=== PATIENT | male | born 1960 | race Caucasian/White ===

== ENCOUNTER 2017-03-21 02:10 | Inpatient (IN) | payer MEDICAID, OTHER ==
[~2017-03-21] VITALS: Ht 175.3 cm; Wt 141.5 kg
--- NOTE | 2017-03-21 02:12 | NUR ---
MD REINOSO AT BED SIDE FOR EVAL
--- NOTE | 2017-03-21 02:15 | NUR ---
BIBSELF FROM HOME C/O LEFT SIDED CP WITH SOB X 7HR EXECUTIVE PRODUCER PROMOS. WAS SEEN AT A URGENT CARE 03/14/17 DX AFIB/ CHF. PATIENT IS AAOX4, AMBULATORY, NAD NOTED. PLACED ON CARDIAC AND VS MONITOR. NONDIAPHORETIC. NOTED AFIB ON THE MONITOR. GOWNED.
--- NOTE | 2017-03-21 02:20 | NUR ---
PATIENT SAID HE WANTS "TO USE THE BATHROOM FIRST BEFORE ANYTHING ELSE."
[2017-03-21] MEDS ORDERED: NITROGLYCERIN PACKET 1 GM PACKET ONE (02:28)
[2017-03-21] MEDS ORDERED: ASPIRIN 81 MG TAB.CHEW ONE (02:28)
[2017-03-21] MEDS ORDERED: NITROGLYCERIN 0.4 MG/TAB BOTTLE ONE (02:28)
[2017-03-21] MEDS ORDERED: NITROGLYCERIN PACKET 1 GM PACKET TD ONE (02:30)
[2017-03-21] MEDS ORDERED: ASPIRIN 81 MG TAB.CHEW PO ONE (02:30)
[2017-03-21] MEDS ORDERED: AMIODARONE 150 MG/3 ML VIAL IV ONE ×4 (02:30→02:56)
[2017-03-21] MEDS ORDERED: NITROGLYCERIN 0.4 MG/TAB BOTTLE SL ONE (02:30)
--- NOTE | 2017-03-21 02:45 | NUR ---
PATIENT BACK TO BED. CXR AT BEDSIDE.
--- NOTE | 2017-03-21 02:50 | NUR ---
STARTED A SALINE LOCK ON THE RIGHT HAND G18, BLOOD DRAWN AND SENT TO LAB.
[2017-03-21 02:57] LABS: BASOPHILS # (AUTO) 0.1 /CMM (0.0-0.2); BASOPHILS % (AUTO) 1.1 % (0.0-2.0); EOSINOPHILS # (AUTO) 0.2 /CMM (0.0-0.7); EOSINOPHILS % (AUTO) 1.7 % (0.0-6.0); HEMATOCRIT 45 % (39-51); HEMOGLOBIN 14.9 g/dL (13.5-17.5); LYMPHOCYTES % (AUTO) 18.3 % (20.0-44.0); MEAN CORPUSCULAR HEMOGLOBIN 29 PG (26.0-33.0); MEAN CORPUSCULAR HGB CONC 33 g/dl (31.0-36.0); MEAN CORPUSCULAR VOLUME 89 fL (80-96); MONOCYTES # (AUTO) 1.1 /CMM (0.1-1.30); NEUTROPHILS # (AUTO) 7.3 /CMM (1.8-8.9); NEUTROPHILS % (AUTO) 68.9 % (43.0-81.0); PLATELET COUNT (AUTO) 283 /CMM (150-450); RDW COEFFICIENT OF VARIATION 15.2 (11.5-15.0); RED BLOOD CELL COUNT(AUTO) 5.12 MIL/uL (4.5-6.0); WHITE BLOOD COUNT (AUTO) 10.6 K/uL (4.3-11.0)
--- NOTE | 2017-03-21 02:57 | NUR ---
POST 5MINS OF NITRO SL X1, PATIENT REPORTS RELIEF FROM ANY CHEST PAIN OR PRESSURE. ONGOING CARDIAC AND VS MONITORING.
[2017-03-21 03:08] LABS: CALCIUM, SERUM 8.6 mg/dL (8.5-10.1); CARBON DIOXIDE 24 mmol/L (21-32); CHLORIDE 106 mmol/L (98-107); CREATININE 1.3 mg/dL (0.6-1.3); GLUCOSE 99 mg/dL (74-106); POTASSIUM 4.5 mmol/L (3.5-5.1); SODIUM SERUM 141 mmol/L (136-145); UREA NITROGEN, BLOOD 24 mg/dL (7-18)
--- NOTE | 2017-03-21 03:15 | NUR ---
STARTED AMIO DRIP AT THIS TIME FOR AFIB 115. ONGOING CARDIAC AND VS MONITORING.
[2017-03-21 03:16] LABS: TROPONIN I < 0.017 ng/mL (0.00-0.056)
[2017-03-21 03:17] LABS: D-DIMER 0.61 mg/L(FEU (0.17-0.50); INR 0.98 (0.87-1.13); PROTHROMBIN TIME 10.2 SECS (9.5-12.7)
[2017-03-21 03:21] LABS: ALANINE AMINOTRANSFERASE 33 U/L (12-78); ALKALINE PHOSPHATASE 101 U/L (46-116); ASPARTATE AMINOTRANSFERASE 24 U/L (15-37); B-TYPE NATRIURETIC PEPTIDE 1432 PG/ML (0-125); BILIRUBIN,DIRECT 0.1 mg/dL (0.0-0.2); BILIRUBIN,TOTAL 0.5 mg/dL (0.2-1.0); TOTAL PROTEIN, SERUM 8.5 g/dL (6.4-8.2)
[2017-03-21] MEDS ORDERED: IOHEXOL-350 100 ML VIAL IV ONE (03:57)
[2017-03-21] MEDS ORDERED: IV NS 0.9% 250 ML IV ONE (03:57)
[2017-03-21] MEDS ORDERED: IV NS 0.9% 1,000 ML BAG IV ONE (04:00)
--- NOTE | 2017-03-21 04:06 | NUR ---
PATIENT TO CT.
[2017-03-21] MEDS ORDERED: FURO-144 PO (05:49)
[2017-03-21] MEDS ORDERED: ASPI81TA2 PO (05:49)
--- NOTE | 2017-03-21 05:53 | NUR ---
Report given to CEDRICK Spann for admission and iggy.
[2017-03-21] MEDS ORDERED: HYDROCODONE/APAP 5/325MG 1 EACH TABLET PO PRN (06:00)
[2017-03-21] MEDS ORDERED: ONDANSETRON HCL/PF 4 MG/2 ML VIAL IVP PRN (06:00)
[2017-03-21] MEDS ORDERED: Z GUARD REMEDY 2 OZ OINT TP PRN (06:00)
[2017-03-21] MEDS ORDERED: ACETAMINOPHEN 325 MG TABLET PO PRN (06:00)
[2017-03-21] MEDS ORDERED: MAGNESIUM HYDROXIDE 30 ML UDC PO PRN (06:00)
[2017-03-21] MEDS ORDERED: MAG HYDROX/AL HYDROX/SIMETH 30 ML UDC PO PRN (06:00)
--- NOTE | 2017-03-21 06:18 | NUR ---
Transferred patient to [facility] floor room 117-1 via als protocol, no incident.
--- NOTE | 2017-03-21 06:25 | NUR ---
LILLIAN RN NOTE PT ARRIVED FROM ER ON GURNEY, A/O X 4, NO SOB, NO DISTRESS OR DISCOMFORT NOTED. PT IS DX WITH CHEST PAIN BY MINE MANAGER SHANE. PT FALL ASLEEP. VSS. WILL ENDORSE TO DAY SHIFT NURSE TO COMPLETE WITH ADMISSION. ON TELE A FIB HR 90. AMIODARONE DRIP AT 1 MG/MINUTE INFUSING WELL. NO S/S OF INFILTRATION NOTED.
[2017-03-21 06:36] VITALS: BP 113/82
--- NOTE | 2017-03-21 06:48 | NUR ---
RN NOTES CLARIFIED ADMISSION ORDERS REGARDING STATUS. PATIENT INITIALLY ADMITTED UNDER TELEMETRY STATUS, BUT PATIENT IS CURRENTLY RECEIVING AMIODARONE DRIP. SHANE CHAUDHARY NP MADE AWARE WITH ORDER TO CHANGE STATUS TO TELEMETRY FOR AMIODARONE DRIP.
--- NOTE | 2017-03-21 07:21 | NUR ---
RN NOTES ON ADMISSION, NOTED WITH $653 [place] ALONG WITH 4 CREDIT CARDS. PATIENT EDUCATED REGARDING SAFETY DEPOSIT BOX TO STORE VALUABLES, WITH VERBALIZATION OF UNDERSTANDING, BUT INSISTS TO KEEP ALL VALUABLES AND PERSONAL BELONGINGS AT BEDSIDE.
--- NOTE | 2017-03-21 07:30 | NUR ---
RN NOTES SEEN PATIENT IN BED SLEEPING W/ BREATHING NORMAL EVEN AND UNLABORED. NO SOB NOTED. ON O2 LPM VIA N/C , SATURATING WELL. NO ACUTE DISTRESS NOTED. TELE MONITOR REVEALS CONTROLLED AFIB HR 70. IV RH 18G PATENT AND INTACT W/ NO INFILTRATION NOTED. BOWEL SOUND PRESENT. PULSES PRESENT, SAFETY MEASURES OBSERVED. NEEDS ATTENDED. CALL LIGHT W/ REACH. WILL CONTINUE TO MONITOR.
[2017-03-21 08:00] VITALS: BP 108/78
--- NOTE | 2017-03-21 08:05 | NUR ---
CLARIFIED WITH ANNMARIE CHU CARDIAC MEDS PT. STILL ON AFIB,REVIEWED LABS H/P WITH NEW ORDERS LEFT AND CARRIED OUT.
[2017-03-21] MEDS ORDERED: ASPIRIN 81 MG TAB.CHEW PO SCH (09:00)
[2017-03-21] MEDS ORDERED: ENOXAPARIN SODIUM 60 MG/0.6 ML DISP.SYRIN SQ SCH (09:00)
[2017-03-21] MEDS: DILTIAZEM HCL CD 240 MG PO SCH (09:03)
[2017-03-21 12:00] VITALS: BP 129/86
--- NOTE | 2017-03-21 12:55 | NUR ---
WOUND CARE CONSULT: PT PRESENTS WITH ULCER TO LEFT LOWER LEG, PRESENT ON ADMISSION. PT REFUSED FULL SKIN ASSESSMENT OF BUTTOCKS, BACK AREAS. PT STATES IS CONTINENT AND AMBULATORY. WILL SEE PRN. RECOMMEND SURGICAL CONSULT. MD IN AGREEMENT WITH PLAN OF CARE. Addendum: 03/21/17 at 1256 by BASHIR MONROY WNDNU Amended: Links added.
[2017-03-21] MEDS ORDERED: HYDROGEL DRESSING 90 GM TUBE TP PRN (13:00)
[2017-03-21] MEDS: HYDROGEL DRESSING 90 GM TUBE TP SCH (15:16)
[2017-03-21 16:00] VITALS: BP_SYST 144; BP_SYST 146; BP_DIAS 55; BP_DIAS 97
[2017-03-21] MEDS ORDERED: FUROSEMIDE 40 MG/4 ML VIAL IV ONE (17:00)
[2017-03-21] MEDS: METOPROLOL TARTRATE 25 MG TABLET PO SCH (17:18)
--- NOTE | 2017-03-21 19:04 | NUR ---
RN NOTES: PATIENT ENDORSED TO NEXT SHIFT IN STABLE CONDITION WITH BREATHING NORMAL EVEN AND UNLABORED. NO SOB NOTED. NO ACUTE DISTRESS NOTED. KEPT CLEAN DRY AND COMFORTABLE. ALL NEEDS ATTENDED. SAFETY MEASURES OBSERVED. CALL LIGHT WITH IN REACH. WILL CONTINUE TO MONITOR.
--- NOTE | 2017-03-21 19:30 | NUR ---
MOLD INSERT CHANGER INITIAL NOTE PT RECEIVED RESTING IN BED. A/O X4 AND ABLE TO MAKE NEEDS KNOWN. ON 2L OF O2 VIA NC AND SATURATING 95%. NOTED WITH EPISODES OF SOB. ENCOURAGED TO DO BREATHING EXERCISES AND RELAX IN BED. PT TEACHING TO USE URINAL TO URINATE AND PT REFUSED STATING ' I WANT TO USE THE BATHROOM'. EXPLAINED TO PT RISKS AND BENEFITS AND ABOUT REASONS WHY URINAL SHOULD BE USED FOR STRICT I & O DUE TO LASIX USE. PT STILL REFUSED. TELE- AFIB CONTROLLED 82. ALL SAFETY MEASURES IN PLACE. CALL LIGHT WITHIN REACH. WILL CONTINUE TO MONITOR.
[2017-03-21 20:00] VITALS: BP 111/73
[2017-03-22] VITALS: BP 119/88
[2017-03-22] MEDS: METOPROLOL TARTRATE 25 MG TABLET PO SCH ×2 (00:37→05:15)
[2017-03-22 04:00] VITALS: BP 118/65
[2017-03-22 07:12] LABS: CALCIUM, SERUM 8.5 mg/dL (8.5-10.1); CREATININE 1.2 mg/dL (0.6-1.3); PHOSPHORUS 3.5 mg/dL (2.5-4.9); POTASSIUM 4.9 mmol/L (3.5-5.1)
--- NOTE | 2017-03-22 07:14 | NUR ---
SCHOOL AGE LEAD TEACHER CLOSING NOTE PT REMAINED STABLE DURING SHIFT. NO ACUTE DISTRESS NOTED. OXYGEN WELL TOLERATED. ALL NEEDS ATTENDED TO PROMPTLY. TELE- AFIB CONTROLLED 80'S. NEW IV INSERTED AND PROCESS WELL TOLERATED. NO C/O DISCOMFORT NOTED. ALL SAFETY MEASURES IN PLACE. NPO EXCEPT MEDS MAINTAINED. CALL LIGHT WITHIN REACH. WILL ENDORSE TO NEXT SHIFT FOR CONTINUITY OF CARE.
[2017-03-22 07:19] LABS: BASOPHILS # (AUTO) 0.1 /CMM (0.0-0.2); BASOPHILS % (AUTO) 0.7 % (0.0-2.0); EOSINOPHILS # (AUTO) 0.2 /CMM (0.0-0.7); EOSINOPHILS % (AUTO) 2.5 % (0.0-6.0); HEMATOCRIT 46 % (39-51); HEMOGLOBIN 14.6 g/dL (13.5-17.5); LYMPHOCYTES # (AUTO) 2.2 /CMM (0.8-4.8); LYMPHOCYTES % (AUTO) 23.1 % (20.0-44.0); MEAN CORPUSCULAR HEMOGLOBIN 29 PG (26.0-33.0); MEAN CORPUSCULAR HGB CONC 32 g/dl (31.0-36.0); MEAN CORPUSCULAR VOLUME 89 fL (80-96); MONOCYTES # (AUTO) 0.9 /CMM (0.1-1.30); MONOCYTES % (AUTO) 9.6 % (2.0-12.0); NEUTROPHILS % (AUTO) 64.1 % (43.0-81.0); PLATELET COUNT (AUTO) 277 /CMM (150-450); RDW COEFFICIENT OF VARIATION 15.3 (11.5-15.0); WHITE BLOOD COUNT (AUTO) 9.3 K/uL (4.3-11.0)
--- NOTE | 2017-03-22 07:30 | NUR ---
RN NOTES SEEN PATIENT IN BED ALERT, AWAKE , ORIENTED X3 WITH BREATHING NORMAL EVEN AND UNLABORED. NO SOB NOTED. ON 2L O2 VIA N/C , SATURATING WELL. NO ACUTE DISTRESS NOTED. TELE MONITOR REVEALS CONTROLLED AFIB HR 80. IV IS PATENT AND INTACT. NO INFILTRATION NOTED. BOWEL SOUND PRESENT. PULSES PRESENT, SAFETY MEASURES OBSERVED. NEEDS ATTENDED. CALL LIGHT W/ REACH. WILL CONTINUE TO MONITOR.
[2017-03-22 08:00] VITALS: BP_SYST 104; BP_SYST 111; BP_DIAS 66; BP_DIAS 73
[2017-03-22] MEDS ORDERED: ENOXAPARIN SODIUM 40 MG/0.4 ML DISP.SYRIN SQ SCH (09:00)
[2017-03-22] MEDS ORDERED: ASPIRIN 81 MG TAB.CHEW PO SCH (09:00)
[2017-03-22] MEDS ORDERED: ASPIRIN 325 MG TABLET PO SCH (10:01)
[2017-03-22 12:00] VITALS: BP 119/83
[2017-03-22] MEDS ORDERED: REGADENOSON 0.4 MG/5 ML DISP.SYRIN IVP ONE (12:30)
[2017-03-22] MEDS: DILTIAZEM HCL CD 240 MG PO SCH (14:15)
[2017-03-22] MEDS ORDERED: MORPHINE SULFATE INJ 4 MG/ML DISP.SYRIN IV PRN (14:30)
[2017-03-22] MEDS: HYDROGEL DRESSING 90 GM TUBE TP SCH (14:52)
[2017-03-22 16:00] VITALS: BP 127/77
[2017-03-22] MEDS ORDERED: METOPROLOL TARTRATE 25 MG TABLET PO SCH (17:00)
--- NOTE | 2017-03-22 19:00 | NUR ---
RN NOTES PATIENT DISCHARGED IN STABLE CONDITION WITH BREATHING NORMAL, EVEN AND UNLABORED. NO SOB NOTED. ON ROOM AIR, SATURATING WELL. NO ACUTE DISTRESS NOTED. DENIES ANY PAIN OR DISCOMFORT. DISCHARGE INSTRUCTION GIVEN WITH FEEDBACK. UNDERSTOOD WELL. PATIENT REFUSED FOR WOUND PICTURE. R/B EXPLAINED. BUT STILL REFUSED STRONGLY. PATIENT LEFT IN STABLE CONDITION.
[2017-03-22 20:00] VITALS: BP 108/46
[2017-03-23] VITALS: BP 90/52
== END 2017-03-23 | disposition home or self-care (01) | DRG 201 ==
LOC: ER 02:13 → TELE-TD 06:18 → TELE1 14:20
PROVIDERS: ADMIT Internal Medicine; ATTEND Internal Medicine
DX: I48.91 Unspecified atrial fibrillation (principal); Z68.42 Body mass index [BMI] 45.0-49.9, adult; F15.10 Other stimulant abuse, uncomplicated; E66.9 Obesity, unspecified
CPT/HCPCS: 36415; 71010-TC; 80048-TC; 80061-TC; 80076-TC; 83735-TC; 83880; 84100-TC; 84443-TC; 84484-TC; 85025-TC; 85378-TC; 85730-TC; 87081-TC; 93307-TC; A4606; A6248; A9502; J0282; J1650; J1940; J2270; J2785; J7030; J7050; J7060; Q9967; Z7610

== ENCOUNTER 2019-06-10 19:11 | Emergency (ER) | payer MEDICAID ==
[~2019-06-10] VITALS: Ht 175.3 cm; Wt 138.3 kg
[~2019-06-10 19:11] MED LIST: ASPI-1169 PO; FURO-144 PO
--- NOTE | 2019-06-10 19:21 | NUR ---
CALLED PT IN WAITING ROOM. NO RESPONSE.
--- NOTE | 2019-06-10 19:48 | NUR ---
CALLED PT IN WAITING ROOM. NO RESPONSE.
--- NOTE | 2019-06-10 20:27 | NUR ---
BIBS FOR EVALUATION OF BLE REDNESS, SWELLING AND PUS DISCHARGES X 3 DAYS.
[2019-06-10] MEDS ORDERED: VANCOMYCIN 1 GM VIAL ONE (20:53)
[2019-06-10] MEDS ORDERED: VANCOMYCIN 1 GM in IV D5W 250 ML IV ONE (21:00)
[2019-06-10 21:05] LABS: BASOPHILS # (AUTO) 0.1 /CMM (0.0-0.2); BASOPHILS % (AUTO) 0.5 % (0.0-2.0); EOSINOPHILS % (AUTO) 2.2 % (0.0-6.0); HEMATOCRIT 40 % (39-51); HEMOGLOBIN 13.4 g/dL (13.5-17.5); LYMPHOCYTES # (AUTO) 1.4 /CMM (0.8-4.8); LYMPHOCYTES % (AUTO) 14.3 % (20.0-44.0); MEAN CORPUSCULAR HGB CONC 33 g/dl (31.0-36.0); MEAN CORPUSCULAR VOLUME 92 fL (80-96); PLATELET COUNT (AUTO) 306 /CMM (150-450); RED BLOOD CELL COUNT(AUTO) 4.37 MIL/uL (4.5-6.0); WHITE BLOOD COUNT (AUTO) 9.7 K/uL (4.3-11.0)
[2019-06-10 21:12] LABS: CALCIUM, SERUM 8.9 mg/dL (8.5-10.1); CARBON DIOXIDE 34 mmol/L (21-32); CHLORIDE 100 mmol/L (98-107); CREATININE 1.8 mg/dL (0.6-1.3); GLUCOSE 149 mg/dL (74-106); POTASSIUM 3.8 mmol/L (3.5-5.1); SODIUM SERUM 142 mmol/L (136-145); UREA NITROGEN, BLOOD 27 mg/dL (7-18)
[2019-06-10 21:18] LABS: ALANINE AMINOTRANSFERASE 20 U/L (12-78); ALBUMIN 3.1 g/dL (3.4-5.0); ALKALINE PHOSPHATASE 94 U/L (46-116); ASPARTATE AMINOTRANSFERASE 14 U/L (15-37); BILIRUBIN,DIRECT 0.1 mg/dL (0.0-0.2); BILIRUBIN,TOTAL 0.4 mg/dL (0.2-1.0); TOTAL PROTEIN, SERUM 7.8 g/dL (6.4-8.2)
--- NOTE | 2019-06-10 21:55 | NUR ---
PT SIGNED AMA FORM.
--- NOTE | 2019-06-10 22:22 | NUR ---
Pt completed the ATB dose w/ no complications. IV removed. Catheter intact and site benign. Pressure and 4x4 applied to site. No bleeding noted. Patient discharged to home in stable condition. Rx and Written and verbal after care instructions given. Patient verbalizes understanding of instruction.
[2019-06-10 22:30] VITALS: BP 126/90
[2019-06-20] MEDS ORDERED: CEPH500C2 PO (14:08)
[2019-06-20] MEDS ORDERED: FURO80TA3 PO (14:08)
[2019-06-20] MEDS ORDERED: POTA10CA43 PO (14:08)
[2019-06-20] MEDS ORDERED: METO50TA16 PO (14:08)
[2019-06-20] MEDS ORDERED: ATOR40TA PO (14:08)
[2019-06-20] MEDS ORDERED: APIX5TAB PO (14:08)
[2019-06-20] MEDS ORDERED: SMZ/TMP PO (14:08)
[2019-06-20] MEDS ORDERED: DOXE50CA4 PO (14:09)
[2019-06-20] MEDS ORDERED: LORC10TA PO (14:09)
== END 2019-06-10 22:31 | disposition left against medical advice (07) ==
LOC: ER 19:15
DX: L03.116 Cellulitis of left lower limb (principal); L03.115 Cellulitis of right lower limb; I48.91 Unspecified atrial fibrillation; E66.01 Morbid (severe) obesity due to excess calories; I11.0 Hypertensive heart disease with heart failure; I50.9 Heart failure, unspecified; Z60.2 Problems related to living alone; Z79.82 Long term (current) use of aspirin; Z79.899 Other long term (current) drug therapy; Z68.42 Body mass index [BMI] 45.0-49.9, adult
CPT/HCPCS: 36415; 71045; 80048; 80076; 83605; 83880; 84484; 85025; 85730; 87040 ×2; 87081; 93005; 93970; 96365; 99284; J3370

== ENCOUNTER → 2019-06-20 | Emergency (ER) | payer MEDICAID ==
[~2019-06-20] VITALS: Ht 175.3 cm; Wt 140.6 kg
[~2019-06-20] MED LIST changes: +APIX5TAB PO; +ATOR40TA PO; +CEPH500C2 PO; +DOXE50CA4 PO; +FURO80TA3 PO; +LORC10TA PO; +METO50TA16 PO; +MORPHINE SULFATE INJ 2 MG/ML DISP.SYRIN IV ONE; +MORPHINE SULFATE INJ 4 MG/ML DISP.SYRIN ONE; +ONDANSETRON HCL/PF 4 MG/2 ML VIAL IVP ONE; +ONDANSETRON HCL/PF 4 MG/2 ML VIAL ONE; +POTA10CA43 PO; +SMZ/TMP PO; +VANCOMYCIN 1 GM in IV D5W 250 ML IV ONE
--- NOTE | 2019-06-20 12:29 | NUR ---
CAME BACK FOR POSSIBLE ADMISSION FOR BILATERAL LEG CELLULITIS. PT AAOX4, VSS, RR EVEN & UNLABORED. DENIES CP, SOB, DIZZINESS, N/V, WEAKNESS @ THIS TIME. PT SEEN & EVAL'D BY NALDO LAL. WILL CONT TO MONITOR.
[2019-06-20 12:38] LABS: BASOPHILS # (AUTO) 0.1 /CMM (0.0-0.2); EOSINOPHILS % (AUTO) 0.9 % (0.0-6.0); HEMATOCRIT 38 % (39-51); HEMOGLOBIN 12.9 g/dL (13.5-17.5); LYMPHOCYTES # (AUTO) 1.5 /CMM (0.8-4.8); LYMPHOCYTES % (AUTO) 13.9 % (20.0-44.0); MEAN CORPUSCULAR HGB CONC 34 g/dl (31.0-36.0); MEAN CORPUSCULAR VOLUME 90 fL (80-96); NEUTROPHILS # (AUTO) 8.3 /CMM (1.8-8.9); NEUTROPHILS % (AUTO) 75.2 % (43.0-81.0); PLATELET COUNT (AUTO) 390 /CMM (150-450); RED BLOOD CELL COUNT(AUTO) 4.26 MIL/uL (4.5-6.0)
[2019-06-20 12:50] LABS: CALCIUM, SERUM 8.9 mg/dL (8.5-10.1); CREATININE 1.6 mg/dL (0.6-1.3); POTASSIUM 4.4 mmol/L (3.5-5.1)
[2019-06-20 13:05] LABS: ALBUMIN 2.9 g/dL (3.4-5.0); BILIRUBIN,DIRECT 0.1 mg/dL (0.0-0.2); BILIRUBIN,TOTAL 0.4 mg/dL (0.2-1.0)
--- NOTE | 2019-06-20 15:02 | NUR ---
PER CM PT WILL GO TO [facility] PENDING BED ASSIGNMENT
== END | disposition left against medical advice (07) ==
LOC: ER 11:12
DX: L03.116 Cellulitis of left lower limb (principal); L03.115 Cellulitis of right lower limb; I11.0 Hypertensive heart disease with heart failure; I50.9 Heart failure, unspecified; I48.91 Unspecified atrial fibrillation; E66.9 Obesity, unspecified; Z79.82 Long term (current) use of aspirin; Z79.899 Other long term (current) drug therapy; Z68.42 Body mass index [BMI] 45.0-49.9, adult
CPT/HCPCS: 36415; 71045; 80048; 80076; 83605; 83880; 84145; 85025; 85730; 87081; 93005; 96365; 99284; J2405; J3370; J7060; J2270

== ENCOUNTER 2019-11-17 02:33 | Inpatient (IN) | payer MEDICAID ==
[~2019-11-17] VITALS: Ht 175.3 cm; Wt 149.2 kg
[~2019-11-17 02:33] MED LIST changes: -ASPI-1169 PO; -FURO-144 PO; -MORPHINE SULFATE INJ 2 MG/ML DISP.SYRIN IV ONE; -MORPHINE SULFATE INJ 4 MG/ML DISP.SYRIN ONE; -ONDANSETRON HCL/PF 4 MG/2 ML VIAL IVP ONE; -ONDANSETRON HCL/PF 4 MG/2 ML VIAL ONE; -VANCOMYCIN 1 GM in IV D5W 250 ML IV ONE
--- NOTE | 2019-11-17 02:50 | NUR ---
bib friends c/o Syncopal episodes for past week, fell today +loc, c/o lt foot pain. to er bed 2 vitals stable, blood drawn and sent to lab
--- NOTE | 2019-11-17 03:03 | NUR ---
taken to radiology for xray
[2019-11-17 03:15] LABS: BASOPHILS % (AUTO) 0.3 % (0.0-2.0); EOSINOPHILS % (AUTO) 0.5 % (0.0-6.0); HEMATOCRIT 41 % (39-51); HEMOGLOBIN 13.9 g/dL (13.5-17.5); LYMPHOCYTES # (AUTO) 1.4 /CMM (0.8-4.8); MEAN CORPUSCULAR HGB CONC 34 g/dl (31.0-36.0); MEAN CORPUSCULAR VOLUME 90 fL (80-96); MONOCYTES # (AUTO) 1.7 /CMM (0.1-1.30); MONOCYTES % (AUTO) 10.8 % (2.0-12.0); NEUTROPHILS # (AUTO) 12.4 /CMM (1.8-8.9); NEUTROPHILS % (AUTO) 79.4 % (43.0-81.0); PLATELET COUNT (AUTO) 296 /CMM (150-450); RED BLOOD CELL COUNT(AUTO) 4.55 MIL/uL (4.5-6.0); WHITE BLOOD COUNT (AUTO) 15.7 K/uL (4.3-11.0)
[2019-11-17 03:27] LABS: ALANINE AMINOTRANSFERASE 38 U/L (12-78); ALBUMIN 3.6 g/dL (3.4-5.0); ALKALINE PHOSPHATASE 112 U/L (46-116); ASPARTATE AMINOTRANSFERASE 36 U/L (15-37); BILIRUBIN,DIRECT 0.3 mg/dL (0.0-0.2); CALCIUM, SERUM 9.2 mg/dL (8.5-10.1); CREATININE 3.6 mg/dL (0.6-1.3); GLUCOSE 121 mg/dL (74-106); SODIUM SERUM 128 mmol/L (136-145); TOTAL PROTEIN, SERUM 8.5 g/dL (6.4-8.2)
[2019-11-17 03:32] LABS: B-TYPE NATRIURETIC PEPTIDE 897 PG/ML (0-125)
--- NOTE | 2019-11-17 03:32 | NUR ---
pt back from radiology
[2019-11-17 03:39] LABS: ALCOHOL, BLOOD < 3 mg/dL (0-0)
[2019-11-17 03:45] LABS: CHLORIDE 80 mmol/L (98-107)
[2019-11-17 03:47] LABS: POTASSIUM 2.4 mmol/L (3.5-5.1)
[2019-11-17 03:48] LABS: CARBON DIOXIDE 52 mmol/L (21-32); UREA NITROGEN, BLOOD 98 mg/dL (7-18)
[2019-11-17] MEDS ORDERED: PIPERACILLIN /TAZOBACTAM 2.25 G in IV D5W 50 ML IV ONE (04:00)
[2019-11-17] MEDS ORDERED: IV NS 0.9% 1,000 ML BAG IV ONE ×2 (04:00→05:30)
[2019-11-17] MEDS ORDERED: PIPERACILLIN /TAZOBACTAM 2.25 G VIAL IV ONE (04:01)
[2019-11-17] MEDS ORDERED: POTASSIUM CHLORIDE 20 MEQ TAB.PRT.SR PO ONE ×3 (04:10→19:00)
[2019-11-17] MEDS ORDERED: POTASSIUM CL. PREMIX PERIPHER. 100 ML ONE (04:10)
[2019-11-17] MEDS: POTASSIUM CL. PREMIX PERIPHER. 50 ML IV SCH ×4 (04:24→22:15)
[2019-11-17 04:26] LABS: ABG BASE EXCESS 21.8 mmol/L; ABG OXYGEN SATURATION 90.7 % (92.0-98.5); ABG PCO2 55.6 mmHg (35.0-45.0); ABG PH 7.551 (7.350-7.450); ABG PO2 55.8 mmHg (75.0-100.0); AaDO2 27.4 mmHg; COHb 0.9 % (0.5-1.5); MetHb 0.2 % (0.0-1.5); O2Hb 89.7 % (94.0-97.0); SITE, ABG Left Brachial; VENT MODE, BG ROOM AIR
[2019-11-17] MEDS ORDERED: MORPHINE SULFATE INJ 2 MG/ML DISP.SYRIN ONE (05:21)
[2019-11-17] MEDS ORDERED: MORPHINE SULFATE INJ 2 MG/ML DISP.SYRIN IV ONE (05:30)
--- NOTE | 2019-11-17 05:44 | NUR ---
report called in to kenny canada
--- NOTE | 2019-11-17 05:45 | NUR ---
RECEIVED REPORT FROM ER NURSE MAX.
[2019-11-17] MEDS ORDERED: MORPHINE SULFATE INJ 4 MG/ML DISP.SYRIN ONE (05:48)
[2019-11-17] MEDS ORDERED: POTASSIUM CHLORIDE 20 MEQ TAB.PRT.SR PO SCH (06:00)
--- NOTE | 2019-11-17 06:06 | NUR ---
PATIENT TRANSFERRED WITH ACLS PROTOCOL
--- NOTE | 2019-11-17 06:07 | NUR ---
SEARCH SPECIALIST NOTES PATIENT TRANSFERRED FROM ER WITH ACLS PROTOCOL. PATIENT IS AOX4. BREATHING NORMAL NO SOB NOTED RESPIRATION EVEN NON LABORED. PATIENT HAS A HISTORY OF A-FIB, HTN, CHF. ON OXYGEN 4L/MIN VIA NC SATURATING 98% AT THIS TIME. IV SITE RAC G#20 PATENT FLUSHING WELL. BILATERAL LOWER LEG CELLULITIS NOTED. PATIENT ORIENTED TO ROOM AND EQUIPMENT,PATIENT VERBALIZED UNDERSTANDING. ON CONTACT/DROPLET ISOLATION DUE TO R/O COVID19. SAFETY MEASURES IN PLACE, BED IN LOW AND LOCKED POSITION. SIDE RAILS UP X2. CALL LIGHT WITHIN REACH. WILL ENDORSE TO AM NURSE FOR ADMISSION ASSESSMENT.
--- NOTE | 2019-11-17 06:10 | NUR ---
pt transfered to [facility] via acls protocol
[2019-11-17 06:15] LABS: ACETAMINOPHEN < 10 ug/ml (10-30); SALICYLATE < 2.8 mg/dL (2.8-20.0)
[2019-11-17 07:13] VITALS: BP 120/82
--- NOTE | 2019-11-17 07:15 | NUR ---
RN NOTE: Patient received in bed. Awake, alert and oriented x4. Received report from previous nurse about admission. c/o of snycopal episodes within the week and left foot pain. assessments to be made. skin assessment made by dread lozada and verified by nurse. belongings form was signed. tele monitor showing sinus rhythm with hx of A. fib reported. IV site clean, dry, patent and intact. isolation precaution to r/o covid in place. on cont. o2 via nc 2 4lpm being tolerated well with saturation at 98% noted. Not in respiratory distress. No SOB reported. Call light in reach. Bed locked, low and at semi-bryant's position. Side rails up x3. Safety ensured and observed. Will continue to monitor.
[2019-11-17 08:00] VITALS: BP_SYST 145; BP_DIAS 74; BP_DIAS 75
[2019-11-17] MEDS ORDERED: SMZ PO SCH (09:00)
[2019-11-17] MEDS ORDERED: TMP PO SCH (09:00)
[2019-11-17] MEDS ORDERED: APIXABAN 5 MG TABLET PO SCH (09:00)
[2019-11-17] MEDS ORDERED: [UNRECOGNIZED DRUG - OTHER] PO SCH (09:00)
--- NOTE | 2019-11-17 09:00 | NUR ---
RN NOTE: PATIENT WAS ASKED ABOUT NON-FORMULARY MEDICATIONS: LORCASERIN AND SMZ/TMP. PATIENT TOLD NURSE THAT HE DOESN'T HAVE ANY MEANS RIGHT NOW TO GET THOSE MEDICATIONS. INFORMED PHARMACY ABOUT SITUATION
[2019-11-17] MEDS: POTASSIUM CHLORIDE 20 MEQ TAB.PRT.SR PO SCH ×4 (09:15→13:40)
[2019-11-17 10:20] LABS: CALCIUM, SERUM 8.5 mg/dL (8.5-10.1); CREATININE 2.9 mg/dL (0.6-1.3)
[2019-11-17] MEDS: METOPROLOL TARTRATE 50 MG TABLET PO SCH ×2 (10:27→17:01)
[2019-11-17] MEDS: IV NS 0.9% 1,000 ML IV PRN (10:27)
[2019-11-17] MEDS: SULFAMETH/TRIMETH 800/160 MG 1 UDTAB TABLET PO SCH ×2 (10:27→20:18)
[2019-11-17] MEDS: CEPHALEXIN MONOHYDRATE 500 MG CAPSULE PO SCH ×3 (10:27→20:17)
--- NOTE | 2019-11-17 11:13 | NUR ---
rn note: spoke to Dr. Bar about patient's desire to go AMA. BMP level checked and concerned about potassium level of 2.0. MD ordered kdur 80 meq now and recheck of Potassium level in 2hrs. Noted and carried out.
[2019-11-17] MEDS ORDERED: POTASSIUM CHLORIDE 20 MEQ TAB.PRT.SR PO STA (11:25)
[2019-11-17 12:00] VITALS: BP 133/75
[2019-11-17 16:00] VITALS: BP_SYST 101; BP_SYST 130; BP_DIAS 62; BP_DIAS 94
[2019-11-17 16:14] LABS: CALCIUM, SERUM 8.4 mg/dL (8.5-10.1); CREATININE 2.7 mg/dL (0.6-1.3)
[2019-11-17 16:30] LABS: POTASSIUM 2.2 mmol/L (3.5-5.1)
[2019-11-17] MEDS: APIXABAN 5 MG TABLET PO SCH (16:45)
--- NOTE | 2019-11-17 18:00 | NUR ---
Rn note: Informed Dr. Bar about patient's complaints of pain on left foot, awaiting orders for pain medications. Performed belongings check on patient with everything in place. Informed patient that per policy, his non-essential belongings needed to be picked up by family/friends but patient refused. Patient documented to have $820.00 in his possession. Offered to store belongings in safe vault but patient refused. Witnessed by CEDRICK Miller
[2019-11-17] MEDS ORDERED: POTASSIUM CHLORIDE 10 MEQ/50 ML PREMIXED IVPB FOR PERIPHERAL LINE IV ONE (19:00)
[2019-11-17] MEDS ORDERED: ACETAMINOPHEN ES 500 MG TABLET PO PRN (19:00)
[2019-11-17] MEDS ORDERED: ZOLPIDEM TARTRATE 5 MG TABLET PO PRN (19:00)
--- NOTE | 2019-11-17 19:10 | NUR ---
RN closing note: Patient in bed. Awake, alert and oriented x4. Isolation precaution to r/o covid in place. on cont. o2 via nc 2 4lpm being tolerated well with saturation at 98% noted. Not in respiratory distress. No SOB reported. Potassium replacement done on shift for patient's low level. Dr. Bar is aware with additional potassium replacement orders put in. Pain reported on left foot with new pain medication orders from Dr. Bar. Call light in reach. Bed locked, low and at semi-bryant's position. Side rails up x3. Safety ensured and observed. Due medications given. Wound treatment done. Endorsed to oncoming shift for RAMON.
[2019-11-17 20:00] VITALS: BP 110/70
[2019-11-17] MEDS: HYDROCODONE/APAP 5/325MG 1 EACH TABLET PO PRN (20:26)
--- NOTE | 2019-11-17 20:26 | NUR ---
SALVAGE CLERK: PAIN Patient sitting up in bed, c/o left leg/foot pain 12/25. PRN [place] given, will reassess. Fall precaution maintained.
[2019-11-17] MEDS ORDERED: BISACODYL (5 MG) 5 MG TABLET.DR PO ONE (21:30)
[2019-11-17] MEDS: ATORVASTATIN 40 MG TABLET PO SCH (21:33)
[2019-11-17] MEDS: DOXEPIN HCL (25 MG) 25 MG CAPSULE PO SCH (21:33)
--- NOTE | 2019-11-17 23:10 | NUR ---
CLOTH BLEACHING SUPERVISOR: RECEIVED PATIENT Patient in bed, awake, appears irritable, feels frustrated on his condition. Oxygen at 4L NC, denies SOB. Sinus rhythm in the Tele monitor. IVF infusing, patient requesting medication for constipation, abdomen rounded, denies nausea no vomiting. Bilateral legs redness, warmth to touch. Fall precaution maintained.
[2019-11-17 23:38] VITALS: BP 103/71
[2019-11-18] VITALS (8 sets, daily range): BP systolic 100–135; BP diastolic 50–77
[2019-11-18] MEDS: IV NS 0.9% 1,000 ML IV PRN ×2 (00:08→23:03)
--- NOTE | 2019-11-18 00:10 | NUR ---
DR. COSTA MADE AWARE COVID SWAB NEGATIVE AND PER PROTOCOL TRANSFER PATIENT TO CLEAN/NON-COVID UNIT. STATED OKAY TO TRANSFER.
--- NOTE | 2019-11-18 01:56 | NUR ---
BAGGING MACHINE OPERATOR: TRANSFERRED Covid-19 resulted not detected, confirmed by [employer] nurse. Patient aware. Personal belongings check list signed with PEPE Carrington. Patient has $820, Credit cards and visa kept by herself, refused to keep it in the safe. Patient transported to [facility] by bed with leads on for Tele monitor. All personal belongings send with the patient upon transport. Report given to CEDRICK Willams for continuity of care.
--- NOTE | 2019-11-18 02:00 | NUR ---
TELE/SUPERVISOR GENERAL FROM LILLIAN: PATIENT IS A 59 YO MORBID OBESE MALE WHO CAME FROM [facility] AND WAS NEGATIVE OF COVID, WITH BLE WEAKNESS DUE TO FALL AND WITH CELLULITIS, ON OXYGEN VIA NC AT 4LITER, ALERT, ORIENTED X3, ABLE TO VERBALIZE NEEDS, REPORTED WAMT TO EAT SNACKS AND REQUIRE ASSISTANCE IN TURNING, NO BM FOR MANY DAYS AND WAS GIVEN ONE TIME ORDER OF DULCOLAX, PATIENT BELONGINGS WAS CHECKED AND WITH AMOUNT OF HAMPTON OF 820 USD WITH CREDIT CARDS, CELLPHONE AND WANT TO KEEP IT AT BEDSIDE, DISCUSSED PROS AND CONS , AND VERBALIZED UNDERSTANDING.PATIENT WITH SYNCOPAL EPISODE AND MD COSTA ADMITTING DR, POTASSIUM WAS REPLACED AND AWAITING RESULT IN AM FOR ANY PLAN FOR PATIENT TRANSFER REPORTED BY CM .. BED LOCKED, BELONGINGS CHECK. CALL LIGHTS WITHIN REACH. INSTRUC TO CALL FOR ASSISTANCE. WILL MONITOR. RECEIVED REPORT FROM CEDRICK CHAU FOR RAMON.
--- NOTE | 2019-11-18 02:30 | NUR ---
TELE/RN NOTES PATIENT REQUESTED FOR SOME SNACKS, AND ABLE TO TOLERATE FLUIDS, HE SAID HE IS LOOKING FORWARD TO GET SOME BREAKFAST,
--- NOTE | 2019-11-18 02:30 | NUR ---
SKIN CHECK WITH BLE CELLULITIS, PHOTO TAKEN EARLIER, FOR WOUND CONSULT.
[2019-11-18 05:47] LABS: BASOPHILS # (AUTO) 0.2 /CMM (0.0-0.2); BASOPHILS % (AUTO) 1.8 % (0.0-2.0); EOSINOPHILS % (AUTO) 1.3 % (0.0-6.0); HEMATOCRIT 36 % (39-51); HEMOGLOBIN 12.3 g/dL (13.5-17.5); LYMPHOCYTES % (AUTO) 8.2 % (20.0-44.0); MEAN CORPUSCULAR HGB CONC 34 g/dl (31.0-36.0); MEAN CORPUSCULAR VOLUME 90 fL (80-96); MONOCYTES # (AUTO) 0.8 /CMM (0.1-1.30); MONOCYTES % (AUTO) 6.9 % (2.0-12.0); NEUTROPHILS # (AUTO) 9.9 /CMM (1.8-8.9); NEUTROPHILS % (AUTO) 81.8 % (43.0-81.0); PLATELET COUNT (AUTO) 257 /CMM (150-450); RED BLOOD CELL COUNT(AUTO) 4.01 MIL/uL (4.5-6.0); WHITE BLOOD COUNT (AUTO) 12.1 K/uL (4.3-11.0)
[2019-11-18 05:58] LABS: ALANINE AMINOTRANSFERASE 31 U/L (12-78); ALBUMIN 2.8 g/dL (3.4-5.0); ALKALINE PHOSPHATASE 81 U/L (46-116); ASPARTATE AMINOTRANSFERASE 29 U/L (15-37); BILIRUBIN,TOTAL 0.6 mg/dL (0.2-1.0); CALCIUM, SERUM 8.6 mg/dL (8.5-10.1); CHLORIDE 90 mmol/L (98-107); CREATININE 2.4 mg/dL (0.6-1.3); GLUCOSE 140 mg/dL (74-106); MAGNESIUM 3.5 mg/dL (1.8-2.4); PHOSPHORUS 1.5 mg/dL (2.5-4.9); SODIUM SERUM 137 mmol/L (136-145); TOTAL PROTEIN, SERUM 7.3 g/dL (6.4-8.2); UREA NITROGEN, BLOOD 66 mg/dL (7-18)
[2019-11-18] MEDS: CEPHALEXIN MONOHYDRATE 500 MG CAPSULE PO SCH ×3 (06:04→21:28)
[2019-11-18 06:07] LABS: CREATINE KINASE, TOTAL 212 U/L (39-308); THYROID STIMULATING HORMONE 1.041 uIU/mL (0.358-3.74); URIC ACID 10.9 mg/dL (2.6-7.2)
[2019-11-18 06:09] LABS: CARBON DIOXIDE 50 mmol/L (21-32); POTASSIUM 2.5 mmol/L (3.5-5.1)
--- NOTE | 2019-11-18 06:11 | NUR ---
TELE/RN NOTES CRITICAL LEVEL OF POTASSIUM AT 2.5 RESULT RECEIVED FROM LAB TAWANDA. TO COMMUNICATE WITH MF FOR ORDER.
--- NOTE | 2019-11-18 06:30 | NUR ---
RECEIVED ORDER FROM MD TERRY REGARDING LOW POTASSIUM LEVEL WITH PO AND IV GIVEN LAST NIGHT TO RE DRAW POTASSIUM LEVEL AGAIN AT 10 AM.
--- NOTE | 2019-11-18 06:49 | NUR ---
306-1 TELE/RN NOTES PATIENT ALERT, ORIENTED X3, ABLE TO VERBALIZE NEEDS, ON OXYGEN AT 4 LITER VIA NC, RESTING COMFORTABLY IN BED, ATTENDED TO ALL NEEDS, PROVIDED SNACKS, TOLERATED FLUIDS WELL. MONITORED FOR ANY CHANGES, BELONGINGS WITHIN REACH, BED LOCKED, CALL LIGHTS WITHIN REACH. WILL ENDORSE TO AM RN FOR RAMON.
--- NOTE | 2019-11-18 07:30 | NUR ---
Tele/RN Opening Received patient AO x 3-4, able to responds all stimuli. Does no c/o dizziness or discomfort at this time, skin is warm to touch,kept clean/dry. Respiratory even and unlabored in room air, patient refused oxygen via N/C. Keep bed in lock with low position and elevated head of bed for secure airway. Call light within reach, will continue to monitor.
[2019-11-18] MEDS ORDERED: POTASSIUM PHOSPHATE MM 15 MMOL in IV NS 0.9% 250 ML IV SCH (08:30)
[2019-11-18] MEDS ORDERED: POTASSIUM CHLORIDE 10 MEQ/50 ML PREMIXED IVPB FOR PERIPHERAL LINE IV ONE (08:30)
--- NOTE | 2019-11-18 08:35 | NUR ---
WOUND CARE CONSULT: RECEIVED CONSULT FOR BILATERAL LEG SCABS, PRESENT ON ADMISSION. UNABLE TO DO SKIN ASSESSMENT AT THIS TIME DUE TO PT HAVING PROCEDURE. RECOMMENDATIONS MADE FOR SKIN PROTECTION AND DISCUSSED WITH NURSING STAFF. CURRENT PETER SCORE IS 17. MD IN AGREEMENT WITH PLAN OF CARE.
--- NOTE | 2019-11-18 08:46 | NUR ---
WOUND CARE: PT SEEN FOR SKIN ASSESSMENT AFTER PROCEDURE WAS COMPLETED. PT NOTED TO HAVE REDNESS TO LOWER LEGS WITH DRY SCABS, PRESENT ON ADMISSION. PT IS ABLE TO TURN AND REPOSITION IN BED AND IS CONTINENT. PT REFUSED BARIATRIC BED AND STATES IS COMFORTABLE AT THIS TIME. WILL SEE PREsa P[place] IN AGREEMENT WITH PLAN OF CARE.
[2019-11-18] MEDS ORDERED: NEUTRA PHOS 1 POWD.PACKET PO SCH (09:00)
[2019-11-18] MEDS ORDERED: POTASSIUM CHLORIDE 20 MEQ TAB.PRT.SR PO SCH ×2 (09:00→10:30)
[2019-11-18] MEDS ORDERED: Z GUARD REMEDY 2 OZ OINT TP PRN (09:00)
[2019-11-18] MEDS ORDERED: POTASSIUM CL. PREMIX PERIPHER. 50 ML IV SCH (09:00)
[2019-11-18] MEDS ORDERED: K PHOS NEUTRAL 250 MG TABLET PO SCH (09:00)
[2019-11-18] MEDS: SULFAMETH/TRIMETH 800/160 MG 1 UDTAB TABLET PO SCH ×2 (09:13→21:28)
[2019-11-18] MEDS: METOPROLOL TARTRATE 50 MG TABLET PO SCH ×2 (09:15→16:50)
[2019-11-18] MEDS: APIXABAN 5 MG TABLET PO SCH ×2 (09:16→16:51)
[2019-11-18] MEDS: POTASSIUM CHLORIDE 20 MEQ TAB.PRT.SR PO SCH ×5 (09:33→14:02)
--- NOTE | 2019-11-18 10:00 | NUR ---
Spoke with pharmacy who will clarify dosage of potassium with Dr. Landeros, will hold potassium meds.
[2019-11-18] MEDS: POTASSIUM PHOSPHATE MM 7.5 MMOL in IV NS 0.9% 100 ML IV SCH ×2 (11:24→13:01)
[2019-11-18] MEDS: HYDROCODONE/APAP 5/325MG 1 EACH TABLET PO PRN (12:10)
[2019-11-18] MEDS: K PHOS NEUTRAL 250 MG TABLET PO SCH ×3 (13:00→21:29)
--- NOTE | 2019-11-18 13:06 | NUR ---
Patient c/o chest pain but no order nitroglycerin or morphine, given Narco and no further c/o chest pain. EKG taken and shows a-fib, no changes from previous. Waiting response from DR. Bar.
[2019-11-18 14:45] LABS: CALCIUM, SERUM 8.5 mg/dL (8.5-10.1); CREATININE 2.3 mg/dL (0.6-1.3); POTASSIUM 2.9 mmol/L (3.5-5.1)
--- NOTE | 2019-11-18 15:00 | NUR ---
Dr. Bar made aware regarding pt c/o chest pain and given narco, no further chest pain.
[2019-11-18] MEDS ORDERED: POTASSIUM CHLORIDE 20 MEQ TAB.PRT.SR PO ONE (16:30)
--- NOTE | 2019-11-18 18:30 | NUR ---
Tele/RN Closing note Patient in bed, sleeping comfortably, no c/o chest pain or discomfort, skin is warm to touch, keep clean/dry. Respiratory even and unlabored in room air. Keep bed in lock with low position and elevated head of bed for secure airway. Call light within reach, will continue to monitor. Addendum: 11/18/19 at 1855 by GAYLE MCCABE RN Error
--- NOTE | 2019-11-18 18:55 | NUR ---
Tele/RN Closing note Patient in bed, sleeping comfortably, no c/o chest pain or discomfort, skin is warm to touch, keep clean/dry. Respiratory even and unlabored in room air. Keep bed in lock with low position and elevated head of bed for secure airway. Call light within reach, will endorse slot shift manager.
--- NOTE | 2019-11-18 19:15 | NUR ---
DATA CAPTURE CLERK NOTES RECEIVED PT IN BED AWAKE AND ABLE TO MAKE NEEDS KNOWN. PT A/O X3. RESPIRATIONS EVEN AND UNLABORED WITH NO S/S OF ACUTE DISTRESS OR SOB NOTED. NO COMPLAINTS OF PAIN AT THIS TIME. PT NOTED WITH RAC #20G PATENT AND INTACT INFUSING NS @200CC/HR. SAFETY MEASURES IN PLACE WITH BED IN LOWEST LOCKED POSITION WITH SIDE RAILS UP X2. CALL LIGHT WITHIN REACH. WILL CONTINUE TO MONITOR.
[2019-11-18] MEDS: ATORVASTATIN 40 MG TABLET PO SCH (21:28)
[2019-11-18] MEDS: DOXEPIN HCL (25 MG) 25 MG CAPSULE PO SCH (21:28)
[2019-11-19 04:00] VITALS: BP 122/45
[2019-11-19] MEDS: IV NS 0.9% 1,000 ML IV PRN (05:24)
[2019-11-19] MEDS: CEPHALEXIN MONOHYDRATE 500 MG CAPSULE PO SCH (05:24)
[2019-11-19 06:38] LABS: BASOPHILS # (AUTO) 0.1 /CMM (0.0-0.2); BASOPHILS % (AUTO) 0.5 % (0.0-2.0); EOSINOPHILS % (AUTO) 1.6 % (0.0-6.0); HEMATOCRIT 37 % (39-51); HEMOGLOBIN 12.5 g/dL (13.5-17.5); LYMPHOCYTES # (AUTO) 1.4 /CMM (0.8-4.8); MEAN CORPUSCULAR HGB CONC 34 g/dl (31.0-36.0); MEAN CORPUSCULAR VOLUME 91 fL (80-96); MONOCYTES # (AUTO) 0.9 /CMM (0.1-1.30); MONOCYTES % (AUTO) 7.6 % (2.0-12.0); NEUTROPHILS # (AUTO) 8.9 /CMM (1.8-8.9); NEUTROPHILS % (AUTO) 78.3 % (43.0-81.0); PLATELET COUNT (AUTO) 251 /CMM (150-450); WHITE BLOOD COUNT (AUTO) 11.3 K/uL (4.3-11.0)
[2019-11-19 06:54] LABS: ALBUMIN 2.6 g/dL (3.4-5.0); BILIRUBIN,TOTAL 0.6 mg/dL (0.2-1.0); CALCIUM, SERUM 8.2 mg/dL (8.5-10.1); CREATININE 1.9 mg/dL (0.6-1.3); MAGNESIUM 2.7 mg/dL (1.8-2.4); PHOSPHORUS 2.6 mg/dL (2.5-4.9); TOTAL PROTEIN, SERUM 7.2 g/dL (6.4-8.2)
--- NOTE | 2019-11-19 07:06 | NUR ---
PATTERN GENERATOR OPERATOR NOTES PT IN BED AWAKE AND ABLE TO MAKE NEEDS KNOWN. PT A/O X3. RESPIRATIONS EVEN AND UNLABORED WITH NO S/S OF ACUTE DISTRESS OR SOB NOTED THROUGHOUT SHIFT. NO COMPLAINTS OF PAIN AT THIS TIME. PT NOTED WITH RAC #20G PATENT AND INTACT INFUSING NS @200CC/HR. SAFETY MEASURES IN PLACE WITH BED IN LOWEST LOCKED POSITION WITH SIDE RAILS UP X2. CALL LIGHT WITHIN REACH. WILL ENDORSE TO ONCOMING NURSE FOR RAMON.
[2019-11-19 07:07] LABS: PTH, INTACT 72 pg/mL (15-65)
[2019-11-19 07:18] LABS: POTASSIUM 2.7 mmol/L (3.5-5.1)
--- NOTE | 2019-11-19 07:30 | NUR ---
Tele/RN Opening Note Received patient in bed, AO x 3-4, able to responds all stimuli. Does no c/o pain or any discomfort, skin is war to touch, kept clean/dry, intact IV site. Respiratory even and unlabored in room air. Keep bed in lock with low position and elevated head of bed for secure airway. Call light within reach, will continue to monitor.
--- NOTE | 2019-11-19 08:09 | NUR ---
Patient noticed potassium level 2.7, Bicarb 42 this morning, Dr. Bar made aware during in facility.
[2019-11-19] MEDS ORDERED: POTASSIUM CHLORIDE 10 MEQ/50 ML PREMIXED IVPB FOR PERIPHERAL LINE IV ONE (08:30)
[2019-11-19] MEDS ORDERED: POTASSIUM CHLORIDE 20 MEQ TAB.PRT.SR PO ONE ×2 (08:30→09:30)
[2019-11-19] MEDS ORDERED: PANTOPRAZOLE 40 MG TABLET.DR PO SCH (08:30)
[2019-11-19 08:41] VITALS: BP 99/46
[2019-11-19 08:49] VITALS: BP 99/46
[2019-11-19] MEDS: METOPROLOL TARTRATE 50 MG TABLET PO SCH (08:49)
[2019-11-19] MEDS: POTASSIUM CL. PREMIX PERIPHER. 50 ML IV SCH ×2 (08:49→09:51)
[2019-11-19] MEDS: SULFAMETH/TRIMETH 800/160 MG 1 UDTAB TABLET PO SCH (08:50)
[2019-11-19] MEDS: APIXABAN 5 MG TABLET PO SCH (08:51)
[2019-11-19] MEDS ORDERED: LACTULOSE 10 G/15 ML UDC (PYXIS) PO SCH (09:00)
[2019-11-19 09:07] LABS: *SPE A/G RATIO 0.8 (0.7-1.7); *SPE ALBUMIN 2.8 g/dL (2.9-4.4); *SPE ALPHA-1-GLOBULIN 0.4 g/dL (0.0-0.4); *SPE ALPHA-2-GLOBULIN 0.9 g/dL (0.4-1.0); *SPE BETA GLOBULIN 0.9 g/dL (0.7-1.3); *SPE GLOBULIN, TOTAL 3.5 g/dL (2.2-3.9); *SPE M-SPIKE Not Observed g/dL (Not Observed); *SPEGAMMA GLOBULIN 1.3 g/dL (0.4-1.8)
--- NOTE | 2019-11-19 13:20 | NUR ---
Patient left facility accompanied by staff to private car, given discharge instruction caregiver/Edward include miner pick prescription and side effect of meds. Pt. carried rothman which counted before patient leave. Pt. refused take wound pictures.
[2019-11-19] MEDS ORDERED: POTASSIUM CHLORIDE 20 MEQ POWDER PACKET ONE (19:16)
--- NOTE | 2019-11-19 19:40 | NUR ---
Dr. Bar aware Lab. result: potassium 3.5 while pt in the ER, according ER/Jeff. Left message to Dr. Bar for lab result for make sure.
== END 2019-11-19 13:15 | disposition home or self-care (01) | DRG 422 ==
LOC: ER 02:35 → TELE-TD 05:36 → TELE1 10:47 → TELE 11-18 02:13
PROVIDERS: ADMIT Internal Medicine; ATTEND Internal Medicine
DX: E86.0 Dehydration (principal); N17.0 Acute kidney failure with tubular necrosis; I27.20 Pulmonary hypertension, unspecified; E66.01 Morbid (severe) obesity due to excess calories; I11.0 Hypertensive heart disease with heart failure; I50.22 Chronic systolic (congestive) heart failure; E87.3 Alkalosis; I48.91 Unspecified atrial fibrillation; I95.1 Orthostatic hypotension; L03.116 Cellulitis of left lower limb; Z68.42 Body mass index [BMI] 45.0-49.9, adult; I13.0 Hypertensive heart and chronic kidney disease with heart failure and stage 1 through stage 4 chronic kidney disease, or unspecified chronic kidney disease; E87.6 Hypokalemia; N18.9 Chronic kidney disease, unspecified; Z79.899 Other long term (current) drug therapy; E78.5 Hyperlipidemia, unspecified; F15.21 Other stimulant dependence, in remission; G47.30 Sleep apnea, unspecified; I42.0 Dilated cardiomyopathy; I70.0 Atherosclerosis of aorta; M48.02 Spinal stenosis, cervical region
CPT/HCPCS: 36415; 36600; 70450-TC; 71045-TC; 72125-TC; 73610-TC; 73630-TC; 80048-TC; 80053-TC; 80076-TC; 82533; 82550-TC; 83605-TC; 83735-TC; 83880; 83970; 84100-TC; 84132-TC; 84155; 84165; 84439-TC; 84443-TC; 84484-TC; 84550-TC; 85025-TC; 85730-TC; 87040-TC; 87081-TC; 93307-TC; 93880-TC; G0378; G0480; J2270; J2543; J3480; J3490; J7030; J7040; J7050; J7060; U0003-CS